=== PATIENT | female | born 1965 | race African-American/Black ===

== ENCOUNTER 2016-05-07 21:25 | Inpatient (IN) | payer OTHER ==
[2016-05-07] MEDS ORDERED: morphine CARPU-JECT 2 MG/1 ML DISP.SYRIN IVPUSH ONE (22:13)
[2016-05-07] MEDS ORDERED: KETOROLAC TROMETHAMINE 30 MG/1 ML VIAL IVPUSH ONE (22:13)
[2016-05-07] MEDS ORDERED: morphine CARPU-JECT 2 MG/1 ML DISP.SYRIN ONE (22:26)
[2016-05-07] MEDS ORDERED: KETOROLAC TROMETHAMINE 30 MG/1 ML VIAL ONE (22:26)
--- NOTE | 2016-05-07 22:38 | PDOC ---
History of Present Illness - General History Source: Patient - History of Present Illness Initial Comments: 05/07/16 23:14 The patient is a 50 year old female with a significant past medical history of DM, HTN, kidney stones who is arrived to the emergency department via EMS with complaints of severe lower back pain radiating to lateral aspect of right thigh since 8pm tonight. Pt states that she started to experience a severe mid lower back pain, when she bent over in shower to wash her legs. Pt is able to move her legs, but she reports pain when lifting right leg. She denies any weakness, numbness, or tingling. She denies any urinary symptoms. 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 She denies fever, chills, abdominal pain, nausea, vomiting, diarrhea, chest pain , SOB, cough, wheezing. PCP: Dr. Triny Renee <Vera Elizondo - Last Filed: 05/08/16 02:01> <Sydnie Sainz - Last Filed: 05/08/16 06:52> - General Chief Complaint: Back Pain Stated Complaint: BACK PAIN Time Seen by Provider: 05/07/16 21:45 Past History <Vera Elizondo - Last Filed: 05/08/16 02:01> - Past Medical History Diabetes: Yes HTN: Yes Kidney Stones: Yes - Psycho/Social/Smoking Cessation Hx Anxiety: No Suicidal Ideation: No Smoking Status: No Smoking History: Never smoked Years of Tobacco Use: 0 Have you smoked in the past 12 months: No Number of Cigarettes Smoked Daily: 0 Information on smoking cessation initiated: No Hx Alcohol Use: No Drug/Substance Use Hx: No Substance Use Type: None <Sydnie Sainz - Last Filed: 05/08/16 06:52> - Past Medical History Allergies/Adverse Reactions: Allergies Allergy/AdvReac Type Severity Reaction Status Date / Time No Known Allergies Allergy Verified 05/07/16 21:37 Home Medications: Ambulatory Orders Metformin Xr [Glucophage Xr] 750 mg PO BID 01/06/13 Benzonatate [Tessalon Perle -] 200 mg PO BID #20 cap 05/09/15 Lisinopril [Prinivil -] 10 mg PO DAILY 05/09/15 Review of Systems - Review of Systems Able to Perform ROS?: Yes Comments:: 05/07/16 23:14 GENERAL/CONSTITUTIONAL: No: fever, chills, weakness, loss of appetite. HEAD, EYES, EARS, NOSE AND THROAT: No: change in vision, ear pain, discharge, sore throat, throat swelling. CARDIOVASCULAR: No: chest pain, lightheadedness, palpitations, syncope RESPIRATORY: No: cough, shortness of breath, wheezing, hemoptysis, stridor. GASTROINTESTINAL: No: nausea, vomiting, abdominal cramping, diarrhea, rectal bleeding, constipation. GENITOURINARY: No: dysuria, hematuria, frequency, urgency, flank pain. MUSCULOSKELETAL: Yes: lower back pain, left leg pain No: neck pain, muscle swelling SKIN AND BREASTS: No: lesions, pallor, rash or easy bruising. NEUROLOGIC: No: headache, vertigo, paresthesias, weakness ENDOCRINE: No: unexplained weight gain or loss HEMATOLOGIC/LYMPHATIC: No: anemia, easy bleeding, swelling nodes All Other Systems: Reviewed and Negative <Vera Elizondo - Last Filed: 05/08/16 02:01> *Physical Exam - Vital Signs Last Vital Signs Temp Pulse Resp BP Pulse Ox 98.3 F 80 20 150/83 97 05/07/16 21:40 05/07/16 21:40 05/07/16 21:40 05/07/16 21:40 05/07/16 21:40 - Physical Exam Comments: 05/07/16 23:15 GENERAL: The patient is in no acute distress. HEAD: Normal with no signs of trauma. EYES: PERRLA, EOMI, sclera anicteric, conjunctiva clear. ENT: Ears normal, nares patent, oropharynx clear without exudates. Moist mucous membranes. NECK: Normal range of motion, supple without lymphadenopathy, JVD, or masses. LUNGS: Breath sounds equal, clear to auscultation bilaterally. No wheezes, and no crackles. HEART:Regular rate and rhythm, normal S1 and S2 without murmur, rub or gallop. ABDOMEN: Soft, nontender, normoactive bowel sounds. No guarding, no rebound. EXTREMITIES: Normal range of motion, no edema. No clubbing or cyanosis. No erythema, or tenderness. NEUROLOGICAL: Cranial nerves II through XII grossly intact. Normal speech. No focal neurological deficits. MUSCULOSKELETAL: +pain in lower back when raising left leg. no CVA tenderness SKIN: Warm, Dry, normal turgor, no rashes or lesions noted. <Vera Elizondo - Last Filed: 05/08/16 02:01> - Vital Signs Last Vital Signs Temp Pulse Resp BP Pulse Ox 98.3 F 80 20 150/83 97 05/07/16 21:40 05/07/16 21:40 05/07/16 21:40 05/07/16 21:40 05/07/16 21:40 <Sydnie Sainz - Last Filed: 05/08/16 06:52> ED Treatment Course - LABORATORY CBC & Chemistry Diagram: 05/07/16 23:34 05/07/16 23:34 <Vera Elizondo - Last Filed: 05/08/16 02:01> - LABORATORY CBC & Chemistry Diagram: 05/07/16 23:34 05/07/16 23:34 - RADIOLOGY Radiology Studies Ordered: Category Date Time Status LUMBAR SPINE CT W/O CONTRAST [CT] Stat CT Scan 05/07/16 22:12 Ordered <Sydnie Sainz - Last Filed: 05/08/16 06:52> Medical Decision Making - Medical Decision Making 05/08/16 01:53 Dr. Ceja covering for Dr. Triny Altman was paged at 05/08/16 02:01 case was discussed with Dr. Ceja <Vera Elizondo - Last Filed: 05/08/16 02:01> - Medical Decision Making 05/08/16 01:48 Patient Name: Maida Cruz THIS IS A PRELIMINARYREPORT FROM [facility] EXAM: CT lumbar spine without contrast IMAGES: 1057 EXAM DATE AND TIME: 2016-05-08 00:49:02.0 REASON FOR EXAM: Low back pain radiating to right thigh COMPARISON: No FINDINGS: The lumbar vertebrae are normally aligned. No fracture. Slight erosive changes of the inferior L4 and superior L5 endplate. May be degenerative in nature but followup recommended to make sure there is no infection. MR would be sensitive for this. No other appreciable bony degenerative changes. Please note that large body habitus degrades the images to the point where it evaluation of the discs is not optimal. MRI would be more sensitive for disc evaluation.. At L4-5, there is a probable left paramedian disc herniation. Mild hypertrophic changes left sacroiliac joint. 7.6 mm right renal stone is noted. THIS DOCUMENT HAS BEEN ELECTRONICALLY SIGNED 05/08/16 06:51 Pt comes with a herniated disk after she injured herself in the shower tonight. She will be admitted, as she cannot ambulate secondary to the pain and she will likely require neuro consult and MRI in the AM. <Sydnie Sainz - Last Filed: 05/08/16 06:52> *DC/Admit/Observation/Transfer - Attestations Scribe Attestion: 05/07/16 23:16 Documentation prepared by Vera Elizondo, acting as medical research tech for Sydnie Sainz MD. <Vera Elizondo - Last Filed: 05/08/16 02:01> - Discharge Dispostion Admit: Yes <Sydnie Sainz - Last Filed: 05/08/16 06:52> Diagnosis at time of Disposition: Herniated disc, Inability to walk - Referrals
[2016-05-07 23:56] LABS: BASOPHIL 0.9 % (0-2.0); EOSINOPHIL 2.2 % (0-4.5); MCH 21.6 pg (25.7-33.7); MCHC 30.1 g/dl (32.0-36.0); MEAN CELL VOLUME 71.6 fl (80-96); MEAN PLT VOLUME 10.3 fl (7.5-11.1); NEUTROPHILS 67.6 % (42.8-82.8); PLATELET COUNT 297 K/MM3 (134-434); RDW 18.6 % (11.6-15.6); WHITE BLOOD COUNT 11.7 K/mm3 (4.0-10.0)
[2016-05-08 00:14] LABS: INR 1.1 (0.82-1.09); PROTHROMBIN TIME (PATIENT) 12.1 SEC (9.98-11.88)
[2016-05-08 00:25] LABS: ALBUMIN 3.8 g/dl (3.4-5.0); BILIRUBIN,TOTAL 0.4 mg/dL (0.2-1.0); CALCIUM 8.9 mg/dL (8.5-10.1); TOT PROT 8.1 g/dl (6.4-8.2)
[2016-05-08 01:12] LABS: URINE APPEARANCE CLEAR; URINE BILIRUBIN NEGATIVE (NEGATIVE); URINE BLOOD NEGATIVE (NEGATIVE); URINE COLOR LTYELLOW; URINE GLUCOSE (UA) NEGATIVE (NEGATIVE); URINE KETONE NEGATIVE (NEGATIVE); URINE LEUK ESTERASE NEGATIVE (NEGATIVE); URINE NITRITE NEGATIVE (NEGATIVE); URINE PROTEIN NEGATIVE (NEGATIVE); URINE UROBILINOGEN NEGATIVE E.U./dl (0.2-1.0)
[2016-05-08] MEDS ORDERED: OXYCODONE/APAP 5/325MG COMBO TABLET PO ONE (01:22)
[2016-05-08] MEDS ORDERED: OXYCODONE/APAP 5/325MG COMBO TABLET ONE (01:45)
[2016-05-08 02:17] LABS: ANISOCYTOSIS 2+; PLATELET ESTIMATE ADEQUATE (NORMAL)
[2016-05-08] MEDS ORDERED: DOCUSATE SODIUM 100 MG CAPSULE (FP) PO PRN (08:10)
[2016-05-08] MEDS ORDERED: ONDANSETRON 4 MG/2 ML VIAL IVPB PRN (08:10)
--- NOTE | 2016-05-08 08:15 | HP ---
Admitting History and Physical - Primary Care Physician PCP: Triny Altman - Smoking History Smoking history: Never smoked Have you smoked in the past 12 months: No Aproximately how many cigarettes per day: 0 - Alcohol/Substance Use Hx Alcohol Use: No <Duane Ceja - Last Filed: 05/08/16 08:15> - Primary Care Physician PCP: Triny Altman - Admission Chief Complaint: Back pain History of Present Illness: The patient is a 50 year old female with a significant past medical history of DM, HTN, kidney stones who arrived to the emergency department via EMS with complaints of severe lower back pain radiating to lateral aspect of right thigh since 8pm tonight. Pt states that she started to experience a severe mid lower back pain, when she bent over in shower to wash her legs. Pt is able to move her legs, but she reports pain when lifting right leg. She denies any weakness, numbness, or tingling. She denies any urinary symptoms. 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 She denies fever, chills, abdominal pain, nausea, vomiting, diarrhea, chest pain , SOB, cough, wheezing. CT Scan done in ED showed possible L4-L5 disc herniation. Patient seen today in the ED. Continues to have back pain. Unable to walk. Denies urinary or bowel trouble. No headache. No dizziness. Denies any head trauma. Denies any chest pain. History Source: Patient Limitations to Obtaining History: No Limitations - Past Medical History Cardiovascular: Yes: HTN Endocrine: Yes: Diabetes Mellitus Additional Past Medical History: obesity <Asia Ceja - Last Filed: 05/08/16 09:57> Home Medications <Duane Ceja - Last Filed: 05/08/16 08:15> <Asia Ceja - Last Filed: 05/08/16 09:57> - Allergies Allergies/Adverse Reactions: Allergies Allergy/AdvReac Type Severity Reaction Status Date / Time No Known Allergies Allergy Verified 05/07/16 21:37 - Home Medications Home Medications: Ambulatory Orders Metformin Xr [Glucophage Xr] 750 mg PO BID 01/06/13 Benzonatate [Tessalon Perle -] 200 mg PO BID #20 cap 05/09/15 Lisinopril [Prinivil -] 10 mg PO DAILY 05/09/15 Family Disease History - Family Disease History Family History: Unremarkable <Asia Ceja - Last Filed: 05/08/16 09:57> Review of Systems Unable to obtain ROS, reason: See HPI <Asia Ceja - Last Filed: 05/08/16 09:57> Physical Examination Vital Signs: Vital Signs Temperature 98.2 F 05/08/16 06:28 Pulse Rate 67 05/08/16 06:28 Respiratory Rate 16 05/08/16 06:28 Blood Pressure 122/59 05/08/16 06:28 O2 Sat by Pulse Oximetry (%) 99 05/08/16 06:28 <CejaElelizzrocio - Last Filed: 05/08/16 08:15> Vital Signs: Vital Signs Temperature 98.2 F 05/08/16 06:28 Pulse Rate 67 05/08/16 06:28 Respiratory Rate 16 05/08/16 06:28 Blood Pressure 122/59 05/08/16 06:28 O2 Sat by Pulse Oximetry (%) 99 05/08/16 07:40 Constitutional: Yes: Mild Distress Eyes: Yes: Conjunctiva Clear HENT: Yes: WNL Neck: Yes: Supple Cardiovascular: Yes: Regular Rate and Rhythm Respiratory: Yes: CTA Bilaterally Gastrointestinal: Yes: Soft Musculoskeletal: Yes: Back Pain, Other (Straight leg raising test positve at 70 degrees. DTR's within normal limit.) Edema: No Peripheral Pulses WNL: Yes Neurological: Yes: Alert <Asia Ceja - Last Filed: 05/08/16 09:57> Imaging - Results Cat Scan: Report Reviewed <Asia Ceja - Last Filed: 05/08/16 09:57> Problem List - Problems (1) Herniated disc Code(s): ITA6724 - (2) Inability to walk Code(s): R26.2 - DIFFICULTY IN WALKING, NOT ELSEWHERE CLASSIFIED (3) Hypertension Code(s): I10 - ESSENTIAL (PRIMARY) HYPERTENSION (4) Diabetes Code(s): E11.9 - TYPE 2 DIABETES MELLITUS WITHOUT COMPLICATIONS (5) Obesity Code(s): E66.9 - OBESITY, UNSPECIFIED <Asia Ceja - Last Filed: 05/08/16 09:57> Assessment/Plan Pain control. CT scan reviewed. Will order MRI of LS spine. Add Flexeril. Ice packs. Physical therapy. DVT Ppx. Monitor BG and BP. Weight reduction stressed. Will follow. Documentation prepared by Asia Ceja, acting as a biomedical equipment specialist for Duane Ceja MD. <Asia Ceja - Last Filed: 05/08/16 09:57>
[2016-05-08] MEDS ORDERED: KETOROLAC TROMETHAMINE 15 MG/ML VIAL ONE (08:48)
[2016-05-08] MEDS: KETOROLAC TROMETHAMINE 15 MG/ML VIAL IVPUSH PRN ×2 (08:52→18:11)
[2016-05-08] MEDS ORDERED: ENOXAPARIN NA (PORCINE) 40 MG/0.4 ML DISP.SYRIN SQ ONE (09:40)
[2016-05-08] MEDS ORDERED: LISINOPRIL 5 MG TABLET (FP) ONE (09:40)
[2016-05-08] MEDS ORDERED: BENZONATATE PO SCH (10:00)
[2016-05-08] MEDS ORDERED: ENOXAPARIN NA (PORCINE) 40 MG/0.4 ML DISP.SYRIN SQ SCH (10:00)
[2016-05-08] MEDS ORDERED: LISINOPRIL 10 MG TABLET (FP) PO SCH (10:00)
[2016-05-08] MEDS: VALSARTAN 80 MG TABLET (UD) PO SCH (10:06)
[2016-05-08] MEDS: CYCLOBENZAPRINE HCL 10 MG TABLET (FP) PO SCH ×2 (10:06→23:27)
[2016-05-08 14:01] VITALS: BMI 31.7
[2016-05-08] MEDS ORDERED: PT OWN MED DRAWER 7, Y5N ONE (14:42)
[2016-05-08] MEDS: INSULIN SLIDING SCALE (NOVOLOG) 1 VIAL SQ SCH (17:02)
--- NOTE | 2016-05-08 18:38 | CONSULT ---
Consult - text type - Consultation Consultation Note: CC: Low back pain HPI: This is a 50 y woman who was admitted with an acute onset lower back pain. Her pain started after she was bending forward to lift an object. She denies any prior lower back pain. The pain is worse with bending forward and turning in bed. It limits her activity and sleep. \ PMH: DM, HTN, Nephrolithiasis Radiology: Transitional anatomy as S1/S2 with L5/S1 being the lowest movable segment. Type II Modic changes at L5/S1 with mild effacement with left S1 lateral recess. A: 1. Low back pain 2. Lumbar discogenic pain P: 1. I explained the MRI findings and the treatment plan to her. 2. Schedule for Right L4, L5 TFESI tomorrow. I will coordinate it with the OR staff as it is going to be an add-on case. 3. NPO tonight. 4. Continue current mgmt for now. 5. Thank you for the consult.
[2016-05-09] MEDS: INSULIN SLIDING SCALE (NOVOLOG) 1 VIAL SQ SCH ×2 (06:25→17:15)
[2016-05-09] MEDS: KETOROLAC TROMETHAMINE 15 MG/ML VIAL IVPUSH PRN ×2 (08:19→20:47)
[2016-05-09] MEDS: CYCLOBENZAPRINE HCL 10 MG TABLET (FP) PO SCH ×2 (08:59→21:15)
[2016-05-09] MEDS: VALSARTAN 80 MG TABLET (UD) PO SCH (08:59)
--- NOTE | 2016-05-09 11:20 | PN ---
Progress Note, Physician Chief Complaint: Events noted has back pain - radiating to right leg no numbness unable to participate in PT due to pain Seen by pain management - Current Medication List Current Medications: Active Medications Cyclobenzaprine HCl (Flexeril -) 10 mg PO BID [facility] Last Admin: 05/09/16 08:59 Dose: Not Given Docusate Sodium (Colace -) 100 mg PO Q8H PRN PRN Reason: CONSTIPATION Insulin Aspart (Novolog Vial Sliding Scale -) 1 vial SQ BIDAC ZULEIKA PRN Reason: Protocol Last Admin: 05/09/16 06:25 Dose: Not Given Ketorolac Tromethamine (Toradol Injection -) 15 mg IVPUSH Q6H PRN PRN Reason: PAIN Stop: 05/13/16 08:09 Last Admin: 05/09/16 08:19 Dose: 15 mg Non-Formulary Medication (Benzonatate [Tessalon Perle -]) 200 mg PO BID [facility] Ondansetron HCl (Zofran Injection) 4 mg IVPB Q6H PRN PRN Reason: NAUSEA Valsartan (Diovan -) 80 mg PO DAILY [facility] Last Admin: 05/09/16 08:59 Dose: Not Given - Objective Vital Signs: Vital Signs Temperature 98.0 F 05/09/16 08:00 Pulse Rate 77 05/09/16 08:00 Respiratory Rate 20 05/09/16 08:00 Blood Pressure 133/88 05/09/16 08:00 O2 Sat by Pulse Oximetry (%) 96 05/09/16 08:00 Constitutional: Yes: No Distress, Calm Cardiovascular: Yes: Regular Rate and Rhythm Respiratory: Yes: CTA Bilaterally Gastrointestinal: Yes: Normal Bowel Sounds, Soft, Abdomen, Obese. No: Distention, Tenderness Edema: No Neurological: Yes: WNL ...Motor Strength: WNL Psychiatric: Yes: Alert, Oriented Labs: INR, PTT INR 1.10 (0.82-1.09) 05/07/16 23:34 - ....Imaging MRI: Report Reviewed Problem List - Problems (1) Diabetes Code(s): E11.9 - TYPE 2 DIABETES MELLITUS WITHOUT COMPLICATIONS Qualifiers: Diabetes mellitus type: type 2 Diabetes mellitus complication status: without complication (2) Herniated disc Code(s): [id number] - Qualifiers: Spinal region: lumbar Qualified Code(s): M51.26 - Other intervertebral disc displacement, lumbar region (3) Hypertension Code(s): I10 - ESSENTIAL (PRIMARY) HYPERTENSION Qualifiers: Hypertension type: essential hypertension Qualified Code(s): I10 - Essential (primary) hypertension (4) Obesity Code(s): E66.9 - OBESITY, UNSPECIFIED Qualifiers: Obesity type: due to excess calories (5) Lumbar radiculopathy Code(s): M54.16 - RADICULOPATHY, LUMBAR REGION Assessment/Plan PLAN -- scheduled for epidural injection today -- pain meds as needed -- will need PT -- hold off Lovenox today
[2016-05-09] MEDS ORDERED: DEXTROSE 5%-0.45% SALINE 1,000 ML IV SCH (12:00)
[2016-05-09] MEDS ORDERED: LIDOCAINE HCL 1%, 10 MG/ML (20ML VIAL) ONE ×2 (14:05→14:07)
[2016-05-09] MEDS ORDERED: BETAMET ACET/BETAMET NA PH 30 MG/5 ML VIAL ONE (14:05)
[2016-05-09] MEDS ORDERED: BUPIVACAINE HCL/PF 0.25% (2.5MG/ML) 10 ML VIAL ONE ×2 (14:05→14:16)
[2016-05-09] MEDS ORDERED: DEXAMETHASONE SOD PHOSPHATE 4 MG/1 ML VIAL ONE (14:05)
[2016-05-09] MEDS ORDERED: DEXAMETHASONE SOD PHOSPHATE/PF 10 MG/ML SDV ONE (14:16)
[2016-05-09] MEDS ORDERED: PROPOFOL 20 ML ONE (14:29)
[2016-05-09] MEDS ORDERED: SUCCINYLCHOLINE CHLORIDE 200 MG/10 ML VIAL ONE (14:32)
--- NOTE | 2016-05-09 15:54 | PROC ---
Procedure Note Procedure: Procedure Date: 05/09/16 Pre-operative Diagnosis : Lumbar spondylosis, Lumbar DDD, Lumbar Radiculopathy Post operative Diagnosis: same Procedure: Right L4, L5 Transforaminal epidural steroid injections under fluoroscopy Anesthesia: MAC EBL: 0cc After obtaining informed consent regarding risks, benefits and alternatives of the procedure from the patient, the procedure was commenced. Patient placed prone, skin cleaned with Betadine, soft tissue anesthetized with 1% lidocaine. 22 gauge spinal needles were advanced towards the 6o clock position of the pedicle(s) of the above mentioned level(s) using oblique approach and intermittent fluoroscopy. AP and lateral visualization was used to ensure proper needle placement. Contrast was injected and good selective epidurogram(s ) ~noted. Solution containing 1cc of Dexamethasone (10mg/ml) and 3cc of 0.25% Marcaine was injected at each level. [place] were withdrawn. Patient tolerated the procedure well and was discharged home.
[2016-05-10] MEDS ORDERED: INSULIN (NOVOLOG) ASPART 100 UNITS/ML 10ML VIAL ONE (06:29)
[2016-05-10] MEDS: INSULIN SLIDING SCALE (NOVOLOG) 1 VIAL SQ SCH ×2 (06:46→16:50)
[2016-05-10] MEDS: CYCLOBENZAPRINE HCL 10 MG TABLET (FP) PO SCH ×2 (10:19→21:39)
[2016-05-10] MEDS: VALSARTAN 80 MG TABLET (UD) PO SCH (10:19)
[2016-05-10] MEDS: KETOROLAC TROMETHAMINE 15 MG/ML VIAL IVPUSH PRN (10:19)
[2016-05-10] MEDS ORDERED: KETOROLAC TROMETHAMINE 10 MG TABLET PO PRN (11:58)
--- NOTE | 2016-05-10 11:58 | PN ---
Progress Note (short form) - Note Progress Note: s/p epidural injection Pain is not severe as before but has pressure sensation top back when she moves She has pain radiating to right leg No numbness or weakness Vital Signs - 24 hr 05/09/16 05/09/16 05/09/16 13:53 15:19 17:00 Temperature 98.6 F 98.1 F 98.1 F Pulse Rate 83 80 90 Respiratory 20 20 Rate Blood Pressure 130/75 151/84 131/70 O2 Sat by Pulse 96 Oximetry (%) 05/10/16 05/10/16 05/10/16 02:00 06:00 10:26 Temperature 97.9 F 97.5 F L Pulse Rate 84 87 Respiratory 20 20 18 Rate Blood Pressure 128/74 133/72 O2 Sat by Pulse 96 Oximetry (%) Current Medications Generic Name Dose Route Start Last Admin Trade Name Freq PRN Reason Stop Dose Admin Cyclobenzaprine HCl 10 mg 05/08/16 10:00 05/10/16 10:19 Flexeril - PO 10 mg BID ZULEIKA Administration Docusate Sodium 100 mg 05/08/16 08:10 Colace - PO Q8H PRN CONSTIPATION Gabapentin 100 mg 05/10/16 12:00 Neurontin - PO BID ZULEIKA Insulin Aspart 1 vial 05/08/16 16:30 05/10/16 06:46 Novolog Vial Sliding Scale - SQ Not Given BIDAC [facility] Protocol Ketorolac Tromethamine 15 mg 05/08/16 08:10 05/10/16 10:19 Toradol Injection - IVPUSH 05/13/16 08:09 15 mg Q6H PRN Administration PAIN Ondansetron HCl 4 mg 05/08/16 08:10 Zofran Injection IVPB Q6H PRN NAUSEA Valsartan 80 mg 05/08/16 10:00 05/10/16 10:19 Diovan - PO 80 mg DAILY ZULEIKA Administration Laboratory Results - last 24 hr 05/09/16 05/10/16 16:24 06:20 POC Glucometer 83 192 S1 S2 RRR Lungs clear No spinal tenderness no edema PLAN -- Add Gabapentin -- Physical therapy -- continue with meds -- continue with Flexeril -- dc plan for tomorrow Problem List - Problems (1) Diabetes Code(s): E11.9 - TYPE 2 DIABETES MELLITUS WITHOUT COMPLICATIONS Qualifiers: Diabetes mellitus type: type 2 Diabetes mellitus complication status: without complication (2) Herniated disc Code(s): [id number] - Qualifiers: Spinal region: lumbar Qualified Code(s): M51.26 - Other intervertebral disc displacement, lumbar region (3) Hypertension Code(s): I10 - ESSENTIAL (PRIMARY) HYPERTENSION Qualifiers: Hypertension type: essential hypertension Qualified Code(s): I10 - Essential (primary) hypertension (4) Obesity Code(s): E66.9 - OBESITY, UNSPECIFIED Qualifiers: Obesity type: due to excess calories (5) Lumbar radiculopathy Code(s): M54.16 - RADICULOPATHY, LUMBAR REGION
[2016-05-10] MEDS: GABAPENTIN 100 MG CAPSULE (FP) PO SCH ×2 (12:43→21:40)
[2016-05-10] MEDS: POLYETHYLENE GLYCOL 3350 119 GM BTL PO SCH (17:02)
[2016-05-11] MEDS: INSULIN SLIDING SCALE (NOVOLOG) 1 VIAL SQ SCH (06:23)
[2016-05-11] MEDS ORDERED: POLYETHYLENE GLYCOL 3350 119 GM BTL PO SCH (10:00)
[2016-05-11] MEDS: CYCLOBENZAPRINE HCL 10 MG TABLET (FP) PO SCH (10:01)
[2016-05-11] MEDS: VALSARTAN 80 MG TABLET (UD) PO SCH (10:01)
[2016-05-11] MEDS: GABAPENTIN 100 MG CAPSULE (FP) PO SCH (10:01)
[2016-05-11] MEDS: POLYETHYLENE GLYCOL 3350 119 GM BTL PO SCH (10:01)
--- NOTE | 2016-05-11 11:55 | DS ---
Physical Examination Vital Signs: Vital Signs Temperature 98.2 F 05/11/16 06:00 Pulse Rate 74 05/11/16 06:00 Respiratory Rate 20 05/11/16 06:00 Blood Pressure 133/79 05/11/16 06:00 O2 Sat by Pulse Oximetry (%) 96 05/10/16 10:00 Constitutional: Yes: No Distress, Calm Cardiovascular: Yes: Regular Rate and Rhythm Respiratory: Yes: CTA Bilaterally Gastrointestinal: Yes: Normal Bowel Sounds, Soft, Abdomen, Obese. No: Distention, Tenderness Edema: No Neurological: Yes: WNL, Alert, Oriented ...Motor Strength: WNL Psychiatric: Yes: Alert, Oriented Labs: Laboratory Last Values WBC 11.7 K/mm3 (4.0-10.0) H 05/07/16 23:34 RBC 4.67 M/mm3 (3.60-5.2) 05/07/16 23:34 Hgb 10.1 GM/dL (10.7-15.3) L 05/07/16 23:34 Hct 33.5 % (32.4-45.2) 05/07/16 23:34 MCV 71.6 fl (80-96) L 05/07/16 23:34 MCHC 30.1 g/dl (32.0-36.0) L 05/07/16 23:34 RDW 18.6 % (11.6-15.6) H 05/07/16 23:34 Plt Count 297 K/MM3 (134-434) 05/07/16 23:34 MPV 10.3 fl (7.5-11.1) 05/07/16 23:34 Neutrophils % 67.6 % (42.8-82.8) 05/07/16 23:34 Lymphocytes % 22.3 % (8-40) 05/07/16 23:34 Monocytes % 7.0 % (3.8-10.2) 05/07/16 23:34 Eosinophils % 2.2 % (0-4.5) 05/07/16 23:34 Basophils % 0.9 % (0-2.0) 05/07/16 23:34 Platelet Estimate Adequate (NORMAL) 05/07/16 23:34 Platelet Comment Few large plts 05/07/16 23:34 Anisocytosis 2+ 05/07/16 23:34 Macrocytosis 1+ 05/07/16 23:34 INR 1.10 (0.82-1.09) 05/07/16 23:34 Sodium 138 mmol/L (136-145) 05/07/16 23:34 Potassium 4.1 mmol/L (3.5-5.1) 05/07/16 23:34 Chloride 103 mmol/L (98-107) 05/07/16 23:34 Carbon Dioxide 25 mmol/L (21-32) 05/07/16 23:34 Anion Gap 10 (8-16) 05/07/16 23:34 BUN 11 mg/dL (7-18) 05/07/16 23:34 Creatinine 1.0 mg/dL (0.55-1.02) 05/07/16 23:34 Creat Clearance w eGFR 59.18 (>60) 05/07/16 23:34 POC Glucometer 125 UNITS (()) 05/11/16 06:21 Random Glucose 87 mg/dL (74-106) 05/07/16 23:34 Calcium 8.9 mg/dL (8.5-10.1) 05/07/16 23:34 Total Bilirubin 0.4 mg/dL (0.2-1.0) 05/07/16 23:34 AST 31 U/L (15-37) 05/07/16 23:34 ALT 35 U/L (12-78) 05/07/16 23:34 Alkaline Phosphatase 59 U/L (45-117) 05/07/16 23:34 Total Protein 8.1 g/dl (6.4-8.2) 05/07/16 23:34 Albumin 3.8 g/dl (3.4-5.0) 05/07/16 23:34 Urine Color Ltyellow 05/08/16 00:00 Urine Appearance Clear 05/08/16 00:00 Urine pH 6.0 (5.0-8.0) 05/08/16 00:00 Ur Specific [place] 1.014 (1.001-1.035) 05/08/16 00:00 Urine Protein Negative (NEGATIVE) 05/08/16 00:00 Urine Glucose (UA) Negative (NEGATIVE) 05/08/16 00:00 Urine Ketones Negative (NEGATIVE) 05/08/16 00:00 Urine Blood Negative (NEGATIVE) 05/08/16 00:00 Urine Nitrite Negative (NEGATIVE) 05/08/16 00:00 Urine Bilirubin Negative (NEGATIVE) 05/08/16 00:00 Urine Urobilinogen Negative E.U./dl (0.2-1.0) 05/08/16 00:00 Ur Leukocyte Esterase Negative (NEGATIVE) 05/08/16 00:00 Urine HCG, Qual Negative 05/08/16 00:00 Discharge Summary Reason For Visit: LUMBAR RAD Current Active Problems Diabetes (Acute) Herniated disc (Acute) Hypertension (Acute) Inability to walk (Acute) Lumbar radiculopathy (Acute) Obesity (Acute) Hospital Course: ER HISTORY - Admission Chief Complaint: Back pain History of Present Illness: The patient is a 50 year old female with a significant past medical history of DM, HTN, kidney stones who arrived to the emergency department via EMS with complaints of severe lower back pain radiating to lateral aspect of right thigh since 8pm tonight. Pt states that she started to experience a severe mid lower back pain, when she bent over in shower to wash her legs. Pt is able to move her legs, but she reports pain when lifting right leg. She denies any weakness, numbness, or tingling. She denies any urinary symptoms. 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 She denies fever, chills, abdominal pain, nausea, vomiting, diarrhea, chest pain , SOB, cough, wheezing. CT Scan done in ED showed possible L4-L5 disc herniation. Patient seen today in the ED. Continues to have back pain. Unable to walk. Denies urinary or bowel trouble. No headache. No dizziness. Denies any head trauma. Denies any chest pain. HOSPITALIZATION COURSE Pt had MRI LS spine done which showed spondylosis, Degenerative disc disease and disc herniation-- was seen by pain management- Dr Cardona and had epidural injection placed on 05/09/16. Feeling better but has pressure sensation when she moves , she will need physical therapy after discharge. Advised to avoid heavy lifting, pushing and pulling. She is stable for nc home Condition: Good - Instructions Diet, Activity, Other Instructions: Pt advised to stay home from work for the next three weeks- in the meantime she will be undergoing physical therapy and following up with Dr Cardona- pain management. She should see me for clearance to return back to work. Avoid heavy lifting, pushing and pulling. Referrals: Triny Altman MD [Primary Care Provider] - 3 Weeks Alexis Cardona MD [Staff Physician] - [address] brennen [Other] (Physical therapy ) [facility] [Other] (physical therapy ) nancy oleary [Other] (physical therpay ) Disposition: HOME - Home Medications Comprehensive Discharge Medication List: Ambulatory Orders Metformin Xr [Glucophage Xr -] 750 mg PO BID 01/06/13 Benzonatate [Tessalon Perle -] 200 mg PO BID #20 cap 05/09/15 Valsartan [Diovan] 80 mg PO DAILY 05/08/16 Cyclobenzaprine HCl [Flexeril -] 10 mg PO DAILY #14 tablet 05/11/16 Docusate Sodium [Colace -] 100 mg PO Q8H PRN #30 capsule 05/11/16 Gabapentin [Neurontin -] 100 mg PO DAILY #14 capsule 05/11/16 Ketorolac Tromethamine [Toradol -] 10 mg PO Q6HPO PRN #30 tablet 05/11/16 Polyethylene Glycol 3350 [Miralax 119 gm Btl -] 17 gm PO DAILY #1 bottle
[2016-05-11 12:40] VITALS: PULSE 77
[2016-05-11 14:00] VITALS: BP 122/69; TEMP 98.4
== END 2016-05-11 15:47 | disposition home or self-care (01) | DRG 552 ==
LOC: JER 21:25 → UNDOADMOB 05-08 02:11 → JERBED 05-08 02:11 → INTOOBSV 05-08 02:11 → JERBED 05-08 08:10 → J6S 05-08 14:21 → OBSVTOIN 05-10 11:52
PROVIDERS: ADMIT Internal Medicine; ATTEND Internal Medicine
PROC: 3E0R33Z Introduction of Anti-inflammatory into Spinal Canal, Percutaneous Approach (ICD-10-PCS; principal; 2016-05-09 14:00)
DX: M51.26 Other intervertebral disc displacement, lumbar region (principal); M54.16 Radiculopathy, lumbar region; E11.9 Type 2 diabetes mellitus without complications; M47.896 Other spondylosis, lumbar region; I10 Essential (primary) hypertension; R26.2 Difficulty in walking, not elsewhere classified; E66.8 Other obesity; Z68.31 Body mass index [BMI] 31.0-31.9, adult; Z71.3 Dietary counseling and surveillance
CPT/HCPCS: 36415; 72131-TC; 72148-TC; 76000-TC; 80053; 81003; 84703; 85025; 85610; 97116-GP; 97162-PG; 99285-25; G0378

== ENCOUNTER 2016-07-22 00:24 | Emergency (ER) | payer OTHER ==
[2016-07-22 00:48] VITALS: BP 110/74; PULSE 85; TEMP 98.3; BMI 36.9
[2016-07-22] MEDS ORDERED: ACETAMINOPHEN 325 MG TABLET (FP) PO ONE (00:59)
[2016-07-22] MEDS ORDERED: LOPERAMIDE HCL 2 MG CAPSULE PO ONE (00:59)
[2016-07-22] MEDS ORDERED: SODIUM CHLORIDE 1,000 ML IV STA (00:59)
[2016-07-22] MEDS ORDERED: MAG HYDROX/AL HYDROX/SIMETH 30 ML UNIT-DOSE CUP PO ONE (00:59)
[2016-07-22] MEDS ORDERED: METOCLOPRAMIDE HCL INJECTION 10 MG/2 ML VIAL IVPB ONE (01:01)
--- NOTE | 2016-07-22 01:35 | PDOC ---
History of Present Illness - General History Source: Patient, Old Records Exam Limitations: No Limitations - History of Present Illness Initial Comments: 07/22/16 01:46 The patient is a 50 year old female, with a significant past medical history of hypertension and diabetes, who presents to the emergency department with multiple episodes of diarrhea since approximately 7PM yesterday evening. The patient was in her usual state of health yesterday morning. Since 7PM yesterday afternoon, the patient reports approximately 10 episodes of diarrhea. Currently in the ED, the patient reports some nausea but denies fever, chills or vomiting. The patient denies any sick contacts. Allergies: None reported. Past Surgical History: Back Surgery. Social History: Non smoker. Denies alcohol or drug use. PCP: Dr. Triny Altman <Sophia Greenberg - Last Filed: 07/22/16 01:49> - General History Source: Patient Exam Limitations: No Limitations <Adilson Chacon - Last Filed: 07/22/16 01:50> <Sydnie Sainz - Last Filed: 07/22/16 02:39> - General Chief Complaint: Weakness Stated Complaint: WEAKNESS,HEADACHE,DIARRHEA Time Seen by Provider: 07/22/16 00:41 Past History <Sophia Greenberg - Last Filed: 07/22/16 01:49> - Past Medical History Diabetes: Yes HTN: Yes Kidney Stones: Yes - Psycho/Social/Smoking Cessation Hx Anxiety: No Suicidal Ideation: No Smoking Status: No Smoking History: Never smoked Years of Tobacco Use: 0 Have you smoked in the past 12 months: No Number of Cigarettes Smoked Daily: 0 Information on smoking cessation initiated: No Hx Alcohol Use: No Drug/Substance Use Hx: No Substance Use Type: None <Adilson Chacon - Last Filed: 07/22/16 01:50> <Sydnie Sainz - Last Filed: 07/22/16 02:39> - Past Medical History Allergies/Adverse Reactions: Allergies Allergy/AdvReac Type Severity Reaction Status Date / Time No Known Allergies Allergy Verified 07/22/16 00:47 Home Medications: Ambulatory Orders Metformin Xr [Glucophage Xr -] 750 mg PO BID 01/06/13 Benzonatate [Tessalon Perle -] 200 mg PO BID #20 cap 05/09/15 Valsartan [Diovan] 80 mg PO DAILY 05/08/16 Cyclobenzaprine HCl [Flexeril -] 10 mg PO DAILY #14 tablet 05/11/16 Docusate Sodium [Colace -] 100 mg PO Q8H PRN #30 capsule 05/11/16 Gabapentin [Neurontin -] 100 mg PO DAILY #14 capsule 05/11/16 Ketorolac Tromethamine [Toradol -] 10 mg PO Q6HPO PRN #30 tablet 05/11/16 Polyethylene Glycol 3350 [Miralax 119 gm Btl -] 17 gm PO DAILY #1 bottle Review of Systems - Review of Systems Able to Perform ROS?: Yes Comments:: 07/22/16 01:41 GENERAL/CONSTITUTIONAL: No fever or chills. No weakness. HEAD, EYES, EARS, NOSE AND THROAT: No change in vision. No ear pain or discharge. No sore throat. CARDIOVASCULAR: No chest pain or shortness of breath. RESPIRATORY: No cough, wheezing, or hemoptysis. GASTROINTESTINAL: +Nausea, diarrhea. No vomiting or constipation. GENITOURINARY: No dysuria, frequency, or change in urination. MUSCULOSKELETAL: No joint or muscle swelling or pain. No neck or back pain. SKIN: No rash. NEUROLOGIC: No headache, vertigo, loss of consciousness, or change in strength/ sensation. ENDOCRINE: No increased thirst. No abnormal weight change. HEMATOLOGIC/LYMPHATIC: No anemia, easy bleeding, or history of blood clots. ALLERGIC/IMMUNOLOGIC: No hives or skin allergy. <Sophia Greenberg - Last Filed: 07/22/16 01:49> *Physical Exam - Vital Signs Last Vital Signs Temp Pulse Resp BP Pulse Ox 98.3 F 85 20 110/74 98 07/22/16 00:47 07/22/16 00:47 07/22/16 00:47 07/22/16 00:47 07/22/16 00:47 - Physical Exam Comments: 07/22/16 01:49 GENERAL: Awake, alert, and fully oriented, in no acute distress. HEAD: No signs of trauma. EYES: PERRLA, EOMI, sclera anicteric, conjunctiva clear. ENT: Dry mucosa. Auricles normal inspection, hearing grossly normal, nares patent, oropharynx clear without exudates. NECK: Normal ROM, supple, no lymphadenopathy, JVD, or masses. LUNGS: Breath sounds equal, clear to auscultation bilaterally. No wheezes, and no crackles. HEART: Regular rate and rhythm, normal S1 and S2, no murmurs, rubs or gallops. ABDOMEN: Soft, nontender, normoactive bowel sounds. No guarding, no rebound. No masses. EXTREMITIES: Normal range of motion, no edema. No clubbing or cyanosis. No cords, erythema, or tenderness. NEUROLOGICAL: Cranial nerves II through XII intact. Normal speech, normal gait. SKIN: Warm, dry, normal turgor, no rashes or lesions noted. <Sophia Greenberg - Last Filed: 07/22/16 01:49> - Vital Signs Last Vital Signs Temp Pulse Resp BP Pulse Ox 98.3 F 85 20 110/74 98 07/22/16 00:47 07/22/16 00:47 07/22/16 00:47 07/22/16 00:47 07/22/16 00:47 <Adilson Chacon - Last Filed: 07/22/16 01:50> - Vital Signs Last Vital Signs Temp Pulse Resp BP Pulse Ox 98.3 F 85 20 110/74 98 07/22/16 00:47 07/22/16 00:47 07/22/16 00:47 07/22/16 00:47 07/22/16 00:47 <Sydnie Sainz - Last Filed: 07/22/16 02:39> ED Treatment Course - LABORATORY CBC & Chemistry Diagram: 07/22/16 01:45 07/22/16 01:45 - ADDITIONAL ORDERS Additional order review: Laboratory Results 07/22/16 01:45 Sodium 138 Potassium 4.2 Chloride 103 Carbon Dioxide 24 Anion Gap 11 BUN 13 D Creatinine 1.0 D Creat Clearance w eGFR 59.18 Random Glucose 128 H D Calcium 9.4 Magnesium 2.0 Total Bilirubin 0.4 AST 21 ALT 32 Alkaline Phosphatase 68 Total Protein 8.4 H Albumin 3.7 Lipase 138 07/22/16 01:45 RBC 4.30 MCV 66.3 L MCHC 30.9 L RDW 19.4 H MPV 10.2 Neutrophils % 74.2 Lymphocytes % 17.7 D Monocytes % 6.2 Eosinophils % 1.4 Basophils % 0.5 - Medications Given in the ED: ED Medications Discontinued Medications Generic Name Dose Route Start Last Admin Trade Name Barrett PRN Reason Stop Dose Admin Acetaminophen 650 mg 07/22/16 00:59 07/22/16 01:54 Tylenol - PO 07/22/16 01:00 650 mg ONCE ONE Administration Al Hydroxide/Mg Hydroxide 30 ml 07/22/16 00:59 07/22/16 01:53 Mylanta Oral Suspension - PO 07/22/16 01:00 30 ml ONCE ONE Administration Sodium Chloride 1,000 mls @ 1,000 mls/hr 07/22/16 00:59 07/22/16 01:53 Normal Saline - IV 07/22/16 01:58 1,000 mls/hr ASDIR STA Administration Loperamide HCl 4 mg 07/22/16 00:59 07/22/16 01:54 Imodium - PO 07/22/16 01:00 4 mg ONCE ONE Administration Metoclopramide HCl 10 mg 07/22/16 01:01 07/22/16 01:54 Reglan Injection - IVPB 07/22/16 01:02 10 mg ONCE ONE Administration <Sydnie Sainz - Last Filed: 07/22/16 02:39> Medical Decision Making - Medical Decision Making 07/22/16 01:25 A portion of this note was documented by scribe services under my direction. I have reviewed the details of the note, within reason, and agree with the documentation with the following case summary and management plan written by me. Patient treated in the ED. Nursing notes are reviewed and incorporated into the medical decision-making. Vital signs reviewed. Peripheral IV access obtained by the nurse, laboratory studies are drawn and sent, reviewed and interpreted by myself. Vital Signs Temp Pulse Resp BP Pulse Ox 98.3 F 85 20 110/74 98 07/22/16 00:47 07/22/16 00:47 07/22/16 00:47 07/22/16 00:47 07/22/16 00:47 50 year old female with past medical history of HTN, DM presents with diarrhea. The patient reports that she was in her usual state of health when she develop up to 10 times episode of diarrhea and some nausea. Denies fevers, chills. Reports a mild tension like headache. Has some nausea but no vomiting. Pt likely has gastroenteritis. No abdominal pain. Labs, IVF, symptom treatment. If workup negative, and patient reports feeling better, can d/c. 07/22/16 01:50 Case signed out to ED attending Dr. Sainz for further management and disposition. <Adilson Chacon - Last Filed: 07/22/16 01:50> - Medical Decision Making 07/22/16 02:37 Pt received on signout. Pt has normal labs. SHe has been hydrated and she feels better. She has a Hb of 8.8, but 2 months ago it was 9.1, so her Hb is stable. She will be discharged. <Sdynie Sainz - Last Filed: 07/22/16 02:39> *DC/Admit/Observation/Transfer - Attestations Scribe Attestion: 07/22/16 01:40 Documentation prepared by Sophia Greenberg, acting as biomedical engineering technologist for Adilson Chacon MD. <Sophia Greenberg - Last Filed: 07/22/16 01:49> <Adilson Chacon - Last Filed: 07/22/16 01:50> - Discharge Dispostion Admit: No <Sydnie Sainz - Last Filed: 07/22/16 02:39> Diagnosis at time of Disposition: Viral gastroenteritis - Discharge Dispostion Disposition: HOME Condition at time of disposition: Improved - Referrals Referrals: Triny Altman MD [Primary Care Provider] - - Patient Instructions Printed Discharge Instructions: DI for Viral Gastroenteritis -- Adult
[2016-07-22] MEDS ORDERED: LOPERAMIDE HCL 2 MG CAPSULE ONE (01:36)
[2016-07-22] MEDS ORDERED: MAG HYDROX/AL HYDROX/SIMETH 30 ML UNIT-DOSE CUP ONE (01:37)
[2016-07-22] MEDS ORDERED: ACETAMINOPHEN 325 MG TABLET (FP) ONE (01:38)
[2016-07-22] MEDS ORDERED: METOCLOPRAMIDE HCL INJECTION 10 MG/2 ML VIAL ONE (01:39)
[2016-07-22 02:06] LABS: BASOPHIL 0.5 % (0-2.0); EOSINOPHIL 1.4 % (0-4.5); MCH 20.5 pg (25.7-33.7); MCHC 30.9 g/dl (32.0-36.0); MEAN CELL VOLUME 66.3 fl (80-96); MEAN PLT VOLUME 10.2 fl (7.5-11.1); NEUTROPHILS 74.2 % (42.8-82.8); PLATELET COUNT 293 K/MM3 (134-434); RDW 19.4 % (11.6-15.6); WHITE BLOOD COUNT 10.8 K/mm3 (4.0-10.0)
[2016-07-22 02:17] LABS: ALBUMIN 3.7 g/dl (3.4-5.0); BILIRUBIN,TOTAL 0.4 mg/dL (0.2-1.0); CALCIUM 9.4 mg/dL (8.5-10.1); COCKROFT - GAULT 123.1565; TOT PROT 8.4 g/dl (6.4-8.2)
[2016-07-22 04:07] LABS: PLATELET ESTIMATE ADEQUATE (NORMAL)
[2016-07-22 04:08] LABS: ANISOCYTOSIS 2+; HYPOCHROMIA 2+; MICROCYTOSIS 2+; PLATELET COMMENT2 NO CLOTTING DETECTED; POLYCHROMASIA 2+
== END 2016-07-22 03:25 | disposition home or self-care (01) ==
LOC: JER 00:24
PROC: 3E0337Z Introduction of Electrolytic and Water Balance Substance into Peripheral Vein, Percutaneous Approach (ICD-10-PCS; principal; 2016-07-22)
PROC: 3E033GC Introduction of Other Therapeutic Substance into Peripheral Vein, Percutaneous Approach (ICD-10-PCS; 2016-07-22)
DX: A08.4 Viral intestinal infection, unspecified (principal); B97.89 Other viral agents as the cause of diseases classified elsewhere; I10 Essential (primary) hypertension; E11.9 Type 2 diabetes mellitus without complications; Z79.84 Long term (current) use of oral hypoglycemic drugs
CPT/HCPCS: 36415; 80053; 83690; 83735; 85025; 99282-25

== ENCOUNTER 2018-07-16 08:42 | Day surgery (SDC) | payer OTHER ==
[2018-07-15 12:55] VITALS: BMI 38.2
[2018-07-16 12:20] VITALS: TEMP 97.5
[2018-07-16 13:26] VITALS: BP 114/57; PULSE 82
== END 2018-07-16 13:12 | disposition home or self-care (01) ==
LOC: JASU-ENDO 08:42
PROVIDERS: ATTEND Internal Medicine Gastroenterology
PROC: 0DJD8ZZ Inspection of Lower Intestinal Tract, Via Natural or Artificial Opening Endoscopic (ICD-10-PCS; principal; 2018-07-16 10:30)
DX: Z12.11 Encounter for screening for malignant neoplasm of colon (principal); K64.8 Other hemorrhoids
CPT/HCPCS: 84703

== ENCOUNTER 2019-03-18 07:21 | Day surgery (SDC) | payer OTHER ==
[2019-03-17 15:52] VITALS: BMI 36.9
[2019-03-18] MEDS ORDERED: oxyCODONE HCL 5 MG TABLET PO PRN ×2 (08:48→11:00)
[2019-03-18] MEDS ORDERED: ONDANSETRON 4 MG/2 ML VIAL IVPUSH PRN ×2 (08:48→11:00)
[2019-03-18] MEDS ORDERED: LACTATED RINGERS SOLUTION 1,000 ML IV SCH (09:00)
[2019-03-18] MEDS ORDERED: MIDAZOLAM HCL 2 MG/2 ML SINGLE DOSE VIAL ONE (09:11)
[2019-03-18] MEDS ORDERED: PROPOFOL 20 ML ONE ×3 (09:11→10:07)
--- NOTE | 2019-03-18 09:21 | HP ---
History & Physical Update - Physical Physical: No Change - Assessment Assessment: No Change - Plan Plan: No Change (H&P reviwed , no changes for hysteroscopy, D&C, resection of submucos myoma)
[2019-03-18] MEDS ORDERED: IBUPROFEN 600 MG TABLET (FP) PO PRN (11:00)
[2019-03-18] MEDS ORDERED: ELECTROLYTE-148 SOLN 1,000 ML IV SCH (11:00)
[2019-03-18] MEDS ORDERED: IBUPROFEN 800 MG/8 ML IJ IVPB PRN (11:00)
--- NOTE | 2019-03-18 11:33 | OP ---
Operative Note - Note: Operative Date: 03/18/19 Pre-Operative Diagnosis: PMB, submucos myoma, EM polyp Operation: hysteroscopy D&C , polypectomy, resection of submucos myoma Findings: 2 small submucos moyma, 2 EM polyp Surgeon: David Albrecht Anesthesia: General Specimens Removed: fibroid, EM polyp, EM curetting Estimated Blood Loss (mls): 50 Instrument used (Debridements only): Symphions resectoscope Blood Volume Replaced (mls): 0 Operative Report Dictated: Yes
--- NOTE | 2019-03-18 11:43 | OP ---
DATE OF OPERATION: 03/18/2019 PREOPERATIVE DIAGNOSIS: Postmenopausal bleeding and submucous leiomyoma and endometrial polyp. POSTOPERATIVE DIAGNOSIS: Postmenopausal bleeding and submucous leiomyoma and endometrial polyp. PROCEDURE: Hysteroscopy, resection of endometrial polyp and submucous myoma via Symphion resectoscope and dilation and curettage. SURGEON: David Albrecht MD ANESTHESIA: General. ESTIMATED BLOOD LOSS: 50 mL. DESCRIPTION OF PROCEDURE: Patient was taken to the operating room. Under adequate general anesthesia in dorsal lithotomy position, examination under anesthesia revealed external genitalia to be normal. Vagina was normal. The cervix was clean. No gross lesion. Uterus was irregular and prominent with fibroid. Adnexa, no masses were palpable. Then with a weighted speculum in the vagina, anterior lip of cervix was grasped with a single-tooth tenaculum. Uterine cavity was sounded to 11 cm. Then cervix was slightly dilated with Hegar dilator and then Symphion resectoscope was introduced into the uterine cavity. Endocervical canal appeared to be normal. There were 2 fibroids in the posterior wall of the uterus, and there were 2 large polyps on the mid uterine wall anteriorly. Both cornua regions were identified, and tubal ostia were visualized. No other abnormalities were seen. Then with the Symphion resectoscope, 1st the polyp was removed then the resection of the submucous fibroids was done then visualization of the endometrial cavity appeared to be clear without any polyp or fibroid. Then the contents was suctioned then uterine cavity was curetted. Patient tolerated procedure well. Left the OR in good condition. Ubaldo [id number]
[2019-03-18 15:11] VITALS: TEMP 98
[2019-03-18 15:15] VITALS: BP 124/70; PULSE 73
--- NOTE | 2019-03-19 17:12 | PATH ---
Surgical Pathology Report Patient Name: MORE QUIÑONEZ [facility]. Rec. #: [id number] /Age/Gender: 1965 (Age: 53) / F Account: [id number] Location: [facility] SURGICAL Taken: 03/18/2019 Received: 03/18/2019 Reported: 03/19/2019 Physicians: David Albrecht M.D. Specimen(s) Received A: ENDOMETRIAL CURETTINGS B: POLYP &FIBROID Clinical History Menometrorrhagia, fibroid uterus, endometrial polyp, submucosal fibroid Final Diagnosis A. ENDOMETRIAL CURETTINGS: FRAGMENTS OF ENDOMETRIAL POLYP. SEPARATE SECRETORY TYPE ENDOMETRIUM. SEPARATE ENDOCERVICAL TISSUE WITH DILATED GLANDS AND UNREMARKABLE SQUAMOUS EPITHELIUM. B. POLYPS AND FIBROID, BIOPSY: FRAGMENTS OF ENDOMETRIAL POLYP. SEPARATE SMOOTH MUSCLE BUNDLES, CONSISTENT WITH SUBMUCOSA LEIOMYOMA. SEPARATE SECRETORY TYPE ENDOMETRIUM. ENDOCERVICAL TISSUE WITH ACUTE AND CHRONIC INFLAMMATION. Electronically Signed Cydney Higginbotham M.D. Gross Description A. Received in formalin labeled "endometrial curettings," is a 3.0 x 3.0 x 0.4 cm aggregate of blanton-red soft tissue fragments. The formalin is filtered and the specimen is entirely submitted in 2 cassettes. B. Received in formalin labeled "polyp and fibroid," is a 2 g, 4.0 x 3.0 x 0.3 cm aggregate of blanton soft tissue fragments. The formalin is filtered and the specimen is entirely submitted in 2 cassettes. saudi/03/18/2019
== END 2019-03-18 15:05 | disposition home or self-care (01) ==
LOC: JASU-SURG 07:21
PROVIDERS: ATTEND Obstetrics & Gynecology
PROC: 0UDB7ZX Extraction of Endometrium, Via Natural or Artificial Opening, Diagnostic (ICD-10-PCS; 2019-03-18)
PROC: 0UB98ZZ Excision of Uterus, Via Natural or Artificial Opening Endoscopic (ICD-10-PCS; principal; 2019-03-18 09:00)
PROC: 0UB98ZX Excision of Uterus, Via Natural or Artificial Opening Endoscopic, Diagnostic (ICD-10-PCS; 2019-03-18 09:00)
DX: N95.0 Postmenopausal bleeding (principal); D25.0 Submucous leiomyoma of uterus; N84.0 Polyp of corpus uteri; I10 Essential (primary) hypertension; E11.9 Type 2 diabetes mellitus without complications; Z79.84 Long term (current) use of oral hypoglycemic drugs
CPT/HCPCS: 82962; 84703; 88305-TC; 94760

== ENCOUNTER 2020-10-27 04:35 | Day surgery (SDC) | payer OTHER ==
[2020-10-26 12:40] VITALS: BMI 38.4
[2020-10-27] MEDS ORDERED: BUPIVACAINE HCL 100 ML ONE (08:05)
[2020-10-27] MEDS ORDERED: LIDOCAINE HCL 1%, 10 MG/ML (20ML VIAL) ONE (08:05)
[2020-10-27] MEDS ORDERED: BUPIVACAINE HCL 50 ML ONE (09:28)
[2020-10-27] MEDS ORDERED: MIDAZOLAM HCL 2 MG/2 ML SINGLE DOSE VIAL ONE ×2 (09:29→09:40)
[2020-10-27] MEDS ORDERED: PROPOFOL 20 ML ONE ×2 (09:29)
[2020-10-27] MEDS ORDERED: PROMETHAZINE HCL 25 MG/1 ML VIAL IVPB PRN (09:32)
[2020-10-27] MEDS ORDERED: oxyCODONE HCL 5 MG TABLET PO PRN (09:32)
[2020-10-27] MEDS ORDERED: ONDANSETRON 4 MG/2 ML VIAL IVPUSH PRN (09:32)
[2020-10-27] MEDS ORDERED: LACTATED RINGERS SOLUTION 1,000 ML IV SCH (09:45)
[2020-10-27] MEDS ORDERED: LIDOCAINE HCL 1%, 10 MG/ML (20ML VIAL) INF ONE (09:50)
[2020-10-27] MEDS ORDERED: BUPIVACAINE HCL/PF 0.5% (5 MG/ML) 30 ML VIAL IJ ONE (09:50)
[2020-10-27 14:38] VITALS: BP 124/76; PULSE 79; TEMP 97.6
== END 2020-10-27 14:30 | disposition home or self-care (01) ==
LOC: JASU-SURG 04:35
PROVIDERS: ATTEND Orthopaedic Surgery
PROC: 0LN70ZZ Release Right Hand Tendon, Open Approach (ICD-10-PCS; principal; 2020-10-27 09:00)
DX: M65.331 Trigger finger, right middle finger (principal); I10 Essential (primary) hypertension; E11.9 Type 2 diabetes mellitus without complications
CPT/HCPCS: 81025; 82962